=== PATIENT | female | born 1970 | race Caucasian/White ===

== ENCOUNTER 2022-04-14 14:29 | Outpatient (RCR) | payer OTHER, SELFPAY | END 2022-06-01 16:01 | disposition home or self-care (01) | PROVIDERS: PCP Family Medicine; Visit Provider Family Medicine | DX: M72.2 Plantar fascial fibromatosis (principal); M21.869 Other specified acquired deformities of unspecified lower leg; M76.60 Achilles tendinitis, unspecified leg; Z51.89 Encounter for other specified aftercare | CPT/HCPCS: 97161; 97760; 97763 ==

== ENCOUNTER 2023-01-12 06:06 | Day surgery (SDC) | payer OTHER, SELFPAY ==
[2023-01-12] MEDS: LACTATED RINGERS 1000 ML 1,000 ML 100 ML IV (06:20)
[2023-01-12 06:43] VITALS: BMI 22.5
[2023-01-12 06:48] VITALS: BP 129/86; PULSE 71; RESP 16; TEMP 36.4; O2SAT 98
[2023-01-12] MEDS: SODIUM CHLORIDE 0.9 % (FLUSH) 10 ML SYRINGE IVF (07:15)
[2023-01-12] MEDS: LIDOCAINE 1 % PF 30 ML INJECTION (07:39)
[2023-01-12] MEDS: BUPIVACAINE 0.5 % 10 ML VIAL INJECTION (07:39)
[2023-01-12] MEDS: CEFAZOLIN 1 GM inj IVP (07:40)
--- NOTE | 2023-01-12 08:08 | P.ORPRC_ITS ---
Procedure Note Date of procedure: 01/12/23 Procedure: PREOPERATIVE DIAGNOSIS: 1. Right index finger DIP joint mucous cyst and associated dorsal ulnar osteophyte POSTOPERATIVE DIAGNOSIS: 1. Right index finger DIP joint mucous cyst and associated dorsal ulnar osteophyte PROCEDURE: 1. Right index finger mucous cyst open excision 2. Right index finger dorsal ulnar osteophyte open excision SURGEON: Randy Sawyer MD. [employer] OPERATOR: Mary Doguherty Pac - Of note, an licensed physical therapy assistant was critical for this case to aid in patient positioning, tissue retraction, limb manipulation/positioning, and closure. ANESTHESIA: Local anesthetic (50:50 mixture of 2% lidocaine plain and 0.5% marcaine plain) IMPLANTS: None TOURNIQUET: 15 minutes digital tourni-cot COMPLICATIONS: None evident INDICATIONS: The patient is a pleasant 52-year-old female who has experienced right index finger DIP joint dorsal ulnar osteophyte and associated mucous cyst with associated pain, nail deformity, and intermittent cyst rupture spontaneously. Nonoperative management has been tried but unsuccessful. Given the failure of nonoperative management, and how this affects daily life, surgery was recommended. DESCRIPTION OF PROCEDURE: Following a thorough discussion of risks, benefits, and alternatives consent was obtained and the operative extremity was marked. The patient was brought to the operating room and placed supine on the operating table. No antibiotics were administered as this was planned to be a local case only. Proper time-out was performed identifying proper patient, site, and procedure. The operative extremity was prepped and draped in the appropriate sterile fashion using ChloraPrep. The limb was exsanguinated and the tourniquet inflated. An incision was made on the dorsal aspect of the right index finger transversely and extended in a T-shape on the ulnar border. Skin flaps were mobilized. The extensor tendon was identified and protected throughout the case. Capsular tissue just ulnar to the extensor tendon was excised. The mucous cyst thick gelatinous fluid was encountered and evacuated. The dorsal osteophyte was identified and removed with a combination of rongeur and rasp. The extensor tendon was protected throughout the case. Thorough irrigation normal saline was performed. The tourni-cot was released and hemostasis achieved. Closure performed with 4-0 nylon in interrupted simple fashion. Soft dressings were applied, and the patient was awoken/transferred to the recovery room in stable condition. PLAN: 1. Encourage elevation of the operative extremity. 2. Range of motion of the operative extremity/digits as tolerated. 3. Ibuprofen, acetaminophen and/or oxycodone as needed for pain. 4. Follow up with PA visit in 10-14 days for wound check and suture removal.
[2023-01-12 08:20] VITALS: BP 112/89; PULSE 81; RESP 16; TEMP 36.1; O2SAT 100
--- NOTE | 2023-01-12 08:23 | W.ANESCHARGE ---
Anesthesia Charges Start Date/Time Anesthesia Start Date: 01/12/23 Anesthesia Start Time: 07:25 Stop Date/Time Anesthesia Stop Date: 01/12/23 Anesthesia Stop Time: 08:20
--- NOTE | 2023-01-12 08:26 | W.ANESCHARGE ---
Anesthesia Charges Start Date/Time Anesthesia Start Date: 01/12/23 Anesthesia Start Time: 07:25 Stop Date/Time Anesthesia Stop Date: 01/12/23 Anesthesia Stop Time: 08:20
[2023-01-12 08:35] VITALS: BP 110/88; PULSE 81; RESP 16; TEMP 36.1; O2SAT 100
[2023-01-12 08:50] VITALS: BP 112/77; PULSE 81; RESP 16; O2SAT 100
== END 2023-01-12 09:15 | disposition home or self-care (01) ==
PROVIDERS: PCP Student in an Organized Health Care Education/Training Program; Visit Provider Orthopaedic Surgery Sports Medicine
PROC: (CPT 26160; principal; 2023-01-12 07:30)
DX: M67.441 Ganglion, right hand (principal); M25.741 Osteophyte, right hand
CPT/HCPCS: 26160; 26236; 01810; J0690; J1100; J2001; J2250; J2405; J2704; J3010; J7120; S0020

== ENCOUNTER 2023-10-19 16:00 | Outpatient (RCR) | payer BC, SELFPAY | END 2023-12-08 13:37 | disposition home or self-care (01) | PROVIDERS: PCP Student in an Organized Health Care Education/Training Program; Visit Provider Family Medicine | DX: M54.2 Cervicalgia (principal); G89.29 Other chronic pain; Z51.89 Encounter for other specified aftercare | CPT/HCPCS: 97110; 97140; 97161 ==